=== PATIENT | female | born 2000 | race African-American/Black ===

== ENCOUNTER 2023-06-27 13:50 | Outpatient (CLI) | payer BC ==
[~2023-06-27 13:50] MED LIST: Iopamidol 300 61% 100 ML VIAL FS ONE
== END 2023-06-27 13:51 | disposition home or self-care (01) ==
LOC: CSHRAD 13:50
PROVIDERS: ATTEND Obstetrics & Gynecology
DX: N92.6 Irregular menstruation, unspecified (principal)
CPT/HCPCS: 58340; 74740; Q9967